=== PATIENT | male | born 1940 | race Caucasian/White ===

== ENCOUNTER → 2017-11-30 | Outpatient (CLI) | payer MEDICARE | END | disposition home or self-care (01) | LOC: PCVCCLINIC 13:15 | PROVIDERS: ATTEND Internal Medicine | DX: E11.9 Type 2 diabetes mellitus without complications (principal); E78.5 Hyperlipidemia, unspecified; G47.33 Obstructive sleep apnea (adult) (pediatric); Z82.49 Family history of ischemic heart disease and other diseases of the circulatory system; Z98.2 Presence of cerebrospinal fluid drainage device | CPT/HCPCS: 93005; G0463 ==

== ENCOUNTER → 2017-12-07 | Outpatient (CLI) | payer MEDICARE ==
--- NOTE | 2017-12-07 12:28 | PCVCIMAG ---
APPROVED REPORT Study performed: 12/07/2017 10:45:18 Exam: Stress Echocardiogram Indication: DM, FAM HX EARLY CAD, HLP, SLEEP APNEA Patient Location: Echo lab Stress Nurse: Yoon Shanks RN Status: routine Ht: 5 ft 5 in Procedure The patient underwent an Exercise Stress Test using the Gary Protocol. Blood pressure, heart rate, and EKG were monitored. An Echocardiogram was performed by wireless field technician in four stages in quad fashion. At peak stress, four selected images were obtained and placed side by side with resting images for comparison. Stress Test Details Stress Test: Exercise stress testing was performed using a Gary protocol. HR Resting HR: 67 bpmMax Heart Rate (APMHR): 144 bpm Max HR Achieved: 169 bpmTarget HR (85% APMHR): 122 bpm % of APMHR: 117 Recovery HR: 109 bpm HR response to stress: Normal HR response to stress BP Resting BP: 122/74 mmHg Max BP: 180/74 mmHg Recovery BP: 156/70 mmHg ECG Resting ECG: Sinus Rhythm Stress ECG: Sinus Rhythm ST Change: Nondiagnostic ST abnormalities Arrhythmia: None Recovery ECG: Sinus Rhythm Recovery ST Change: Non-specific ST abnormalities Recovery Arrhythmia: None Clinical Reason for Termination: Maximal effort Stress Symptoms: Dyspnea Exercise duration: 9 min 36 sec Highest Stage Achieved: Stage 4: 4.2 mph at 16% grade. Exercise capacity: 12 METs Overall Exercise Capacity for Age: Excellent Scale: Active Angina Score: None Stress ECG Conclusion 1. Subjectively negative for ischemia 2. Echocardiography negative for ischemia 3. Satisfactory functional capacity Pre-Stress Echo The resting Echocardiogram showed normal left ventricular contractility with an estimated Ejection Fraction of about >55%. Normal wall motion in all segments on baseline images. Post-Stress Echo The stress Echocardiogram showed normal left ventricular contractility with an estimated Ejection Fraction of about 65%. Normal augmentation of wall motion in all segments on post stress images. Clinical No clinical evidence for ischemia. Equivocal, non-specific ST changes. Conclusion Clinical Response: Non-ischemic Exercise Capacity: Average Stress ECG Response: Equivocal Stress Echo Images: Non-ischemic Mild mitral valve prolapse with mild mitral regurgitation. The left ventricle is normal in size and wall thickness in both the rest and stress images. 1. Low risk study Other Information Study Quality: Adequate <Conclusion> Mild mitral valve prolapse with mild mitral regurgitation. The left ventricle is normal in size and wall thickness in both the rest and stress images. 1. Low risk study
== END | disposition home or self-care (01) ==
LOC: PCVCIMAG 13:23
PROVIDERS: ATTEND Internal Medicine
DX: E11.9 Type 2 diabetes mellitus without complications (principal); I34.1 Nonrheumatic mitral (valve) prolapse; G47.30 Sleep apnea, unspecified; Z82.49 Family history of ischemic heart disease and other diseases of the circulatory system
CPT/HCPCS: 93325; 93351